=== PATIENT | female | born 1935 | race Caucasian/White ===

== ENCOUNTER → 2024-09-02 11:12 | Outpatient (REF) | payer OTHER, MEDICARE, SELFPAY | LOC: HWRCS 11:12 | PROVIDERS: ATTENDING PHYSICIAN Internal Medicine Cardiovascular Disease; FAMILY PHYSICIAN Family Medicine | DX: I48.0 Paroxysmal atrial fibrillation (principal) | CPT/HCPCS: 93306 ==